=== PATIENT | female | born 1945 | race African-American/Black ===

== ENCOUNTER 2024-04-29 10:23 | Outpatient (REF) | payer OTHER, SELFPAY ==
--- NOTE | ~2024-04-29 | XR_ITS ---
EXAMINATION: XR HIP, RIGHT CLINICAL INFORMATION: M25.551 - Pain in right hip COMPARISON: None available. TECHNIQUE: AP pelvis, and 2 views right hip. FINDINGS: No fracture, dislocation, or suspicious bone lesion. There is normal bone mineralization. Hip joints are normally aligned bilaterally. There is mild to moderate bilateral symmetric joint space narrowing axially, with mild superolateral spurring of the acetabulum. Of note, the acetabula appear overriding bilaterally, with an appearance which can be associated with pincer-type femoral acetabular impingement (TARIK). There are moderate degenerative changes with sclerosis surrounding the SI joints, possibly inflammatory in etiology. 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 There are early vascular calcifications. Soft tissues otherwise image normally. XR/XR hip RT min 2V IMPRESSION: 1. No acute findings right hip. 2. 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 3. 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 Bilateral sclerosis is present. Particularly. 4. Degenerative disc and facet changes lower lumbar spine. 5. Ancillary findings as detailed. Electronically signed by: Dashawn Moreland MD 07/08/2024 01:06 PM JOHN
== END 2024-04-29 10:24 | disposition home or self-care (01) ==
LOC: HO.HOSX 10:23
PROVIDERS: Visit Provider Physician Assistant
DX: M70.61 Trochanteric bursitis, right hip (principal); M25.551 Pain in right hip
CPT/HCPCS: 20610; 73502; J1010

== ENCOUNTER → 2024-04-29 10:32 | Outpatient (BNV) | payer OTHER, SELFPAY | PROVIDERS: Visit Provider Radiology Diagnostic Radiology | DX: M25.551 Pain in right hip (principal) | CPT/HCPCS: 73502 ==

== ENCOUNTER 2024-04-29 11:22 | Outpatient (AMB) | payer OTHER, SELFPAY ==
--- NOTE | 2024-04-29 11:24 | MHC.OFFVIS ---
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 Patient reports her pain has been present since January. Denies injury. She has constant pain in the lateral aspect of hip that radiates down her leg. No numbness or tingling. No previous tx. Finds no relief with acetaminophen or tramadol. She does at home exercises. Allergies Penicillins Allergy (Verified 04/29/24 11:26) hives, loss of voice HPI HPI RECREATIONAL ASSISTANT-Right hip pain: Details: 78 yo female with right hip pain since January. She has pain with laying on the right side, denies numbness or tingling. She denies groin pain. [facility] Social History (Updated 04/29/24 @ 11:28 by Debby Villalba Husam) Patient Tobacco Use Status: Never used Tobacco Current occupational status: unemployed Review of Systems Const All systems reviewed & are unremarkable except as noted in HPI and below Physical Exam Vital Signs: BMI result Body Mass Index 28.1 Extrem Other: Right hip normal to inspection. No pain with ROM of the hip. Pain along the greater trochanter. No pain with hip flexion or abduction.There is No tenderness along the si joint, Negative SLR. NVI. Office Procedures Joint Injection/Aspiration Joint Injection/Aspiration Details: right trochanteric bursa Prep: site was prepped using aseptic technique, ethochloride spray was applied and injection warnings given Injected: 40 mg of, DepoMedrol, with 8 mL of and 1% plain lidocaine Procedure: The patient tolerated the procedure well and there was some relief with the local anesthesia Coding 91536 - Glenohumeral/Tronchanteric Bursa/Intraarticular Procedure code (CPT) selection complete Results Reviewed Results Reviewed: xray of the right hip obtained today show mild oa Assessment & Plan Assessment & Plan (1) Trochanteric bursitis of right hip: Code(s): M70.61 - Trochanteric bursitis, right hip Category: Medical Plan: We discussed options today, which include steroid injection. The patient did consent to move forward with the injection, which was tolerated well.? I recommended rest, ice and elevation and OTC antiinflammatories prn for discomfort. If symptoms persist over the next 6-8 weeks, they will contact our office, otherwise, prn We also discussed their diabetes and the effect the steroid can have on thier blood glucose levels; therefore, they will continue to monitor these very closely over the next 72 hours Orders: Orders PT Evaluation and Treatment Today M70.61 - Trochanteric bursitis, right hip XR hip RT min 2V Today M25.551 - Pain in right hip Coding Level of Care Code New Pt Level 3 (08400) Complex EM visit Add On G2211 Diagnoses Trochanteric bursitis of right hip M70.61 CPT Codes Coding - Joint 7: 41438 - Glenohumeral/Tronchanteric Bursa/Intraarticular ([id number])
[2024-04-29 11:30] VITALS: BMI 28.1
== END 2024-04-29 11:46 | disposition home or self-care (01) ==
LOC: HO.HOS 11:23
PROVIDERS: PCP Physician Assistant Medical; Visit Provider Physician Assistant
DX: M70.61 Trochanteric bursitis, right hip (principal)
CPT/HCPCS: 20610; 99203